=== PATIENT | female | born 1955 | race African-American/Black ===

== ENCOUNTER 2017-02-18 08:21 | Emergency (ER) | payer MEDICARE, MEDICAID ==
[~2017-02-18] VITALS: Ht 175.3 cm; Wt 102.0 kg
[~2017-02-18 08:21] MED LIST: ALBU18HF2 IH; ASPI-1159 PO; FLOV44 INH; INSU100I3 SQ; LOSA25TA3 PO; SYN150 PO
[2017-02-18 09:01] LABS: BASOPHILS % 1.1 % (0.0-2.0); EOSINOPHILS % 1.9 % (0.0-5.0); HEMATOCRIT. 45.5 % (36.0-48.0); HEMOGLOBIN. 15.8 g/dL (12.0-16.0); LYMPHOCYTES % 33.2 % (20.0-50.0); MEAN CORPUSCULAR HEMOGLOBIN 26.1 pg (28.0-32.0); MONOCYTES % 5.9 % (2.0-8.0); NEUTROPHILS % 57.9 % (40.0-76.0); PLATELET 231 x1000/uL (130-400); RED BLOOD CELL COUNT 6.07 mill/uL (4.2-5.4); RED CELL DISTRIBUTION WIDTH 19.4 % (11.6-14.6)
[2017-02-18 09:05] LABS: CLARITY URINE CLOUDY (CLEAR); COLOR URINE YELLOW (YELLOW); GLUCOSE URINE NEGATIVE (NEGATIVE); KETONES URINE NEGATIVE (NEGATIVE); LEUKOCYTE ESTERASE URINE 2+ (NEGATIVE); NITRITE URINE POSITIVE (NEGATIVE); OCCULT BLOOD URINE 1+ (NEGATIVE); PROTEIN URINE 2+ (NEGATIVE); SPECIFIC GRAVITY URINE 1.011 (1.005-1.030)
[2017-02-18 09:16] LABS: CARBON DIOXIDE 29 mEq/L (21-32); CHLORIDE 106 mEq/L (98-107)
[2017-02-18 09:45] VITALS: BP 153/73
== END 2017-02-18 09:52 | disposition home or self-care (01) ==
LOC: ER 08:32
DX: N39.0 Urinary tract infection, site not specified (principal); E11.65 Type 2 diabetes mellitus with hyperglycemia; J44.9 Chronic obstructive pulmonary disease, unspecified; I10 Essential (primary) hypertension; Z79.82 Long term (current) use of aspirin; Z79.4 Long term (current) use of insulin; Z88.5 Allergy status to narcotic agent; Z88.8 Allergy status to other drugs, medicaments and biological substances; Z88.6 Allergy status to analgesic agent
CPT/HCPCS: 36415; 80053; 81001; 83690; 85025; 99284

== ENCOUNTER 2017-04-20 15:19 | Emergency (ER) | payer MEDICARE, MEDICAID ==
[~2017-04-20] VITALS: Ht 175.3 cm; Wt 107.0 kg
[2017-04-20 17:38] VITALS: BP 164/88
== END 2017-04-20 18:42 | disposition home or self-care (01) ==
LOC: ER 15:47
DX: R07.89 Other chest pain (principal); J44.9 Chronic obstructive pulmonary disease, unspecified; E11.9 Type 2 diabetes mellitus without complications; I10 Essential (primary) hypertension; E03.9 Hypothyroidism, unspecified; M32.9 Systemic lupus erythematosus, unspecified; Z79.4 Long term (current) use of insulin; Z88.5 Allergy status to narcotic agent; Z88.6 Allergy status to analgesic agent; Z90.710 Acquired absence of both cervix and uterus; Z79.82 Long term (current) use of aspirin; Z91.048 Other nonmedicinal substance allergy status
CPT/HCPCS: 36415; 84484; 93005; 99285

== ENCOUNTER 2017-07-26 16:27 | Emergency (ER) | payer MEDICARE, MEDICAID ==
[~2017-07-26] VITALS: Ht 175.3 cm; Wt 107.0 kg
[2017-07-26 19:52] LABS: BASOPHILS % 0.7 % (0.0-2.0); EOSINOPHILS % 2.4 % (0.0-5.0); HEMATOCRIT. 48.3 % (36.0-48.0); HEMOGLOBIN. 15.7 g/dL (12.0-16.0); LYMPHOCYTES % 29.1 % (20.0-50.0); MEAN CORPUSCULAR HEMOGLOBIN 26.3 pg (28.0-32.0); MEAN PLATELET VOLUME 10.2 fl (7.4-10.4); MONOCYTES % 6.1 % (2.0-8.0); NEUTROPHILS % 61.7 % (40.0-76.0); PLATELET 247 x1000/uL (130-400); RED BLOOD CELL COUNT 5.97 mill/uL (4.2-5.4); RED CELL DISTRIBUTION WIDTH 16.3 % (11.6-14.6)
[2017-07-26 19:55] VITALS: BP 182/92
[2017-07-26 19:56] LABS: PARTIAL THROMBOPLASTIN TIME 26.9 sec (23.4-31.0); PROTHROMBIN TIME 10.2 sec (9.4-11.6)
[2017-07-26 20:06] LABS: CARBON DIOXIDE 28 mEq/L (21-32); CHLORIDE 101 mEq/L (98-107); TROPONIN I < 0.02 ng/mL (0.00-0.04)
[2017-07-26 20:25] LABS: CLARITY URINE CLEAR (CLEAR); COLOR URINE YELLOW (YELLOW); KETONES URINE NEGATIVE (NEGATIVE); LEUKOCYTE ESTERASE URINE NEGATIVE (NEGATIVE); NITRITE URINE NEGATIVE (NEGATIVE); OCCULT BLOOD URINE NEGATIVE (NEGATIVE); PH URINE 5.5 (4.5-8.0); PROTEIN URINE NEGATIVE (NEGATIVE); UROBILINOGEN URINE 0.2 E.U./dL (0.2-1.0)
== END 2017-07-26 22:39 | disposition home or self-care (01) ==
LOC: ER 16:46
DX: J20.9 Acute bronchitis, unspecified (principal); I10 Essential (primary) hypertension; E11.9 Type 2 diabetes mellitus without complications; M32.9 Systemic lupus erythematosus, unspecified; E89.0 Postprocedural hypothyroidism; Z88.5 Allergy status to narcotic agent; Z88.8 Allergy status to other drugs, medicaments and biological substances; Z88.6 Allergy status to analgesic agent; Z91.041 Radiographic dye allergy status; Z90.710 Acquired absence of both cervix and uterus; Z90.49 Acquired absence of other specified parts of digestive tract
CPT/HCPCS: 36415; 71010; 80053; 81001; 83605; 83880; 84484; 85025; 85610; 85730; 87040; 87804; 93005; 99285

== ENCOUNTER 2017-10-15 15:17 | Emergency (ER) | payer MEDICARE, MEDICAID ==
[~2017-10-15] VITALS: Ht 175.3 cm; Wt 107.0 kg
[2017-10-15 16:31] LABS: BASOPHILS % 0.7 % (0.0-2.0); EOSINOPHILS % 1.8 % (0.0-5.0); HEMATOCRIT. 52.2 % (36.0-48.0); HEMOGLOBIN. 17.4 g/dL (12.0-16.0); LYMPHOCYTES % 27.1 % (20.0-50.0); MEAN CORPUSCULAR HEMOGLOBIN 27.1 pg (28.0-32.0); MEAN CORPUSCULAR VOLUME 81.2 fL (81.0-99.0); MONOCYTES % 3.9 % (2.0-8.0); NEUTROPHILS % 66.5 % (40.0-76.0); PLATELET 253 x1000/uL (130-400); RED BLOOD CELL COUNT 6.43 mill/uL (4.2-5.4); RED CELL DISTRIBUTION WIDTH 16.3 % (11.6-14.6)
[2017-10-15 16:34] LABS: PROTHROMBIN TIME 10.7 sec (9.4-11.6)
[2017-10-15 16:38] LABS: CHLORIDE 100 mEq/L (98-107)
[2017-10-15] MEDS ORDERED: BENZONATATE 200MG CAPSULE PO ONE (20:15)
[2017-10-15] MEDS ORDERED: PREDNISONE 20MG TABLET PO ONE (20:15)
[2017-10-15 20:33] VITALS: BP 155/72
== END 2017-10-15 20:35 | disposition home or self-care (01) ==
LOC: ER 15:58
DX: J18.9 Pneumonia, unspecified organism (principal); J44.0 Chronic obstructive pulmonary disease with (acute) lower respiratory infection; I10 Essential (primary) hypertension; R79.1 Abnormal coagulation profile; E11.9 Type 2 diabetes mellitus without complications; Z79.4 Long term (current) use of insulin; Z79.82 Long term (current) use of aspirin; Z88.5 Allergy status to narcotic agent; Z88.8 Allergy status to other drugs, medicaments and biological substances
CPT/HCPCS: 36415; 71045; 80053; 84484; 85025; 85610; 87804; 93005; 99285; J7512

== ENCOUNTER 2017-11-12 09:40 | Inpatient (IN) | payer MEDICARE, MEDICAID ==
[~2017-11-12] VITALS: Ht 175.3 cm; Wt 106.1 kg
[~2017-11-12 09:40] MED LIST changes: -ALBU18HF2 IH; +BENA40TA3 PO; -FLOV44 INH; +INSU100I22 SQ; -INSU100I3 SQ; +INSU100I7 SQ; -LOSA25TA3 PO
[2017-11-12 10:34] LABS: EOSINOPHILS % 5.2 % (0.0-5.0); HEMATOCRIT. 46.1 % (36.0-48.0); HEMOGLOBIN. 15.5 g/dL (12.0-16.0); LYMPHOCYTES % 36.6 % (20.0-50.0); MEAN CORPUSCULAR HEMOGLOBIN 27.3 pg (28.0-32.0); MEAN CORPUSCULAR VOLUME 81.3 fL (81.0-99.0); MEAN PLATELET VOLUME 9.9 fl (7.4-10.4); MONOCYTES % 4.5 % (2.0-8.0); NEUTROPHILS % 52.7 % (40.0-76.0); PLATELET 241 x1000/uL (130-400); RED BLOOD CELL COUNT 5.67 mill/uL (4.2-5.4); RED CELL DISTRIBUTION WIDTH 15.9 % (11.6-14.6)
[2017-11-12 10:40] LABS: CHLORIDE 102 mEq/L (98-107)
[2017-11-12 10:41] LABS: PARTIAL THROMBOPLASTIN TIME 27.8 sec (23.4-31.0); PROTHROMBIN TIME 10.1 sec (9.4-11.6)
[2017-11-12] MEDS ORDERED: METHYLPREDNISOLONE SOD SUCC 125 MG/2 ML VIAL IV STA (11:00)
[2017-11-12] MEDS ORDERED: ALBUTEROL (0.083%) 2.5MG/3ML NEB HHN STA (11:00)
[2017-11-12] MEDS ORDERED: MAGNESIUM 2 G PREMIX 50 ML IV STA (11:00)
[2017-11-12] MEDS ORDERED: IPRATROPIUM BROMIDE (0.02%) 0.5MG/2.5ML NEB HHN STA (11:00)
[2017-11-12 11:25] LABS: CLARITY URINE CLEAR (CLEAR); COLOR URINE YELLOW (YELLOW); KETONES URINE NEGATIVE (NEGATIVE); LEUKOCYTE ESTERASE URINE 2+ (NEGATIVE); NITRITE URINE NEGATIVE (NEGATIVE); OCCULT BLOOD URINE NEGATIVE (NEGATIVE); PROTEIN URINE NEGATIVE (NEGATIVE); SPECIFIC GRAVITY URINE 1.019 (1.005-1.030); UROBILINOGEN URINE 0.2 E.U./dL (0.2-1.0)
[2017-11-12] MEDS ORDERED: CLONIDINE 0.1MG TABLET PO PRN (11:30)
[2017-11-12] MEDS ORDERED: ONDANSETRON HCL 4MG/2ML VIAL IV PRN (11:30)
[2017-11-12] MEDS ORDERED: DOCUSATE SODIUM 100MG CAPSULE PO PRN (11:30)
[2017-11-12] MEDS ORDERED: ACETAMINOPHEN 325MG TABLET PO PRN (11:30)
[2017-11-12] MEDS ORDERED: LEVOFLOXACIN 500MG PREMIX 100 ML IV ONE (12:15)
[2017-11-12] MEDS ORDERED: LIDOCAINE HCL/PF 1% 2ML VIAL ONE (12:45)
[2017-11-12 12:50] LABS: BG BASE EXCESS -1.4 mmol/L (-2.0-2.0); BG CARBOXYHEMOGLOBIN 0.7 % (0.5-1.5); BG DEOXYHEMOGLOBIN 4.1 % (0.0-5.0); BG METHEMOGLOBIN 0.2 % (0.0-1.5); BG OXYGEN SATURATION 95.9 % (92.0-98.5); BG PCO2 38.1 mmHg (35.0-45.0); BG PH 7.399 (7.350-7.450); BG PO2 81.5 mmHg (75.0-100.0); BG SAMPLE SITE RIGHT RADIAL; BG TOTAL HEMOGLOBIN 14.9 g/dL (12.0-18.0); BG VENT MODE ROOM AIR
[2017-11-12 14:42] VITALS: BP 122/71
[2017-11-12 16:00] VITALS: BP 122/71
[2017-11-12] MEDS ORDERED: METHYLPREDNISOLONE SOD SUCC 40 MG/ML VIAL IV SCH (16:00)
[2017-11-12] MEDS: ENOXAPARIN 30MG/0.3ML SYR SUBCUT SCH (16:05)
[2017-11-12] MEDS ORDERED: IPRATROPIUM/ALBUTEROL 0.5-3(2.5)MG/3ML NEB INH SCH (16:30)
[2017-11-12] MEDS: BENAZEPRIL 20MG TABLET PO SCH (17:00)
[2017-11-12] MEDS ORDERED: CEFTRIAXONE 1 G PREMIX 50 ML IV SCH (18:00)
[2017-11-12] MEDS ORDERED: DEXTROSE 50% WATER 50ML SYRINGE IV PRN (18:45)
[2017-11-12] MEDS: BLOOD SUGAR DIAGNOSTIC STRIP TEST SCH ×2 (18:47→21:00)
[2017-11-12] MEDS: INSULIN LISPRO 100 UNITS/ML SUBCUT SCH ×2 (18:55→23:31)
[2017-11-12] MEDS ORDERED: GUAIFENESIN/CODEINE 200-20MG/10ML UDC PO PRN (19:45)
[2017-11-12] MEDS ORDERED: BENZONATATE 100MG CAPSULE PO PRN (19:45)
[2017-11-12] MEDS ORDERED: GUAIFENESIN/CODEINE 100-10MG/5ML UDC PO PRN (19:51)
[2017-11-12 20:00] VITALS: BP 145/70
[2017-11-12] MEDS: IPRATROPIUM/ALBUTEROL 0.5-3(2.5)MG/3ML NEB INH SCH (22:04)
[2017-11-12] MEDS: INSULIN NPH (HUMULIN-N) 100 UNITS/ML 3ML VIAL SUBCUT SCH (23:31)
[2017-11-13] VITALS: BP 156/84
[2017-11-13 04:00] VITALS: BP 124/65
[2017-11-13] MEDS: BLOOD SUGAR DIAGNOSTIC STRIP TEST SCH ×5 (04:33→20:00)
[2017-11-13] MEDS: INSULIN LISPRO 100 UNITS/ML SUBCUT SCH ×3 (04:36→12:00)
[2017-11-13] MEDS: FLUTICASONE/VILANTEROL 200-25 BLST.W.DEV ORI SCH (05:39)
[2017-11-13] MEDS: ENOXAPARIN 30MG/0.3ML SYR SUBCUT SCH ×2 (06:00→18:00)
[2017-11-13] MEDS: LEVOTHYROXINE SODIUM 150MCG TABLET PO SCH (06:32)
[2017-11-13 07:38] LABS: BASOPHILS % 0.2 % (0.0-2.0); HEMATOCRIT. 42.8 % (36.0-48.0); HEMOGLOBIN. 13.9 g/dL (12.0-16.0); LYMPHOCYTES % 11.3 % (20.0-50.0); MEAN CORPUSCULAR HEMOGLOBIN 26.5 pg (28.0-32.0); MEAN CORPUSCULAR VOLUME 81.6 fL (81.0-99.0); MEAN PLATELET VOLUME 10.5 fl (7.4-10.4); MONOCYTES % 2.5 % (2.0-8.0); PLATELET 266 x1000/uL (130-400); RED BLOOD CELL COUNT 5.24 mill/uL (4.2-5.4); RED CELL DISTRIBUTION WIDTH 15.9 % (11.6-14.6)
[2017-11-13 08:00] VITALS: BP 144/76
[2017-11-13 08:20] LABS: CHLORIDE 101 mEq/L (98-107)
[2017-11-13] MEDS: BENAZEPRIL 20MG TABLET PO SCH ×2 (08:23→17:00)
[2017-11-13] MEDS: INSULIN NPH (HUMULIN-N) 100 UNITS/ML 3ML VIAL SUBCUT SCH ×2 (08:29→21:44)
[2017-11-13 08:30] LABS: CREATINE KINASE MB FRACTION 0.8 ng/mL (0.5-3.6); LDL CHOLESTEROL 189 mg/dL (5-100)
[2017-11-13 08:31] LABS: CREATINE KINASE 56 IU/L (26-192)
[2017-11-13 08:32] LABS: HDL CHOLESTEROL 67 mg/dL (40-59)
[2017-11-13] MEDS ORDERED: AMLO2.5T45 PO (08:36)
[2017-11-13] MEDS ORDERED: GLIP10TA10 PO (08:36)
[2017-11-13] MEDS: IPRATROPIUM/ALBUTEROL 0.5-3(2.5)MG/3ML NEB INH SCH ×4 (09:45→20:12)
[2017-11-13 12:00] VITALS: BP 153/70
[2017-11-13] MEDS ORDERED: INSULIN REGULAR (HUMULIN R) UD 100 UNITS/ML SYR SUBCUT NR ×2 (14:15→20:00)
[2017-11-13 16:00] VITALS: BP 139/63
[2017-11-13] MEDS ORDERED: GUAIFENESIN/DM 600MG/30MG ER TAB 12HR PO PRN (16:30)
[2017-11-13] MEDS ORDERED: NON FORMULARY PATIENT HOME MED EA XX SCH (19:00)
[2017-11-13] MEDS: BENZONATATE 100MG CAPSULE PO SCH (19:04)
[2017-11-13] MEDS ORDERED: GUAIFENESIN/CODEINE 100-10MG/5ML UDC PO PRN (19:51)
[2017-11-13 20:00] VITALS: BP 129/75
[2017-11-13 20:51] LABS: CLARITY URINE CLEAR (CLEAR); COLOR URINE YELLOW (YELLOW); KETONES URINE NEGATIVE (NEGATIVE); LEUKOCYTE ESTERASE URINE TRACE (NEGATIVE); NITRITE URINE NEGATIVE (NEGATIVE); OCCULT BLOOD URINE NEGATIVE (NEGATIVE); PH URINE 5.5 (4.5-8.0); PROTEIN URINE NEGATIVE (NEGATIVE); SPECIFIC GRAVITY URINE 1.025 (1.005-1.030); UROBILINOGEN URINE 0.2 E.U./dL (0.2-1.0)
[2017-11-13] MEDS: CEFTRIAXONE 1 G PREMIX 50 ML IV SCH (21:16)
[2017-11-13] MEDS: INSULIN REGULAR HUMAN (HIGH DOSE) 100 UNITS/ML 3ML VIAL SUBCUT SCH (21:40)
[2017-11-14] VITALS: BP 136/63
[2017-11-14] MEDS: BLOOD SUGAR DIAGNOSTIC STRIP TEST SCH ×6 (00:18→23:42)
[2017-11-14] MEDS: BENZONATATE 100MG CAPSULE PO SCH ×2 (00:57→09:58)
[2017-11-14] MEDS: INSULIN REGULAR HUMAN (HIGH DOSE) 100 UNITS/ML 3ML VIAL SUBCUT SCH ×6 (01:00→20:00)
[2017-11-14 04:00] VITALS: BP 148/69
[2017-11-14] MEDS: ENOXAPARIN 30MG/0.3ML SYR SUBCUT SCH ×2 (06:00→18:00)
[2017-11-14] MEDS: LEVOTHYROXINE SODIUM 150MCG TABLET PO SCH (06:46)
[2017-11-14 07:21] LABS: T4 FREE 1.08 ng/dL (0.76-1.46)
[2017-11-14 08:00] VITALS: BP 142/76
[2017-11-14] MEDS: INSULIN NPH (HUMULIN-N) 100 UNITS/ML 3ML VIAL SUBCUT SCH ×2 (08:53→20:46)
[2017-11-14] MEDS: AMLODIPINE 10MG TABLET PO SCH (08:53)
[2017-11-14] MEDS: FLUTICASONE/VILANTEROL 200-25 BLST.W.DEV ORI SCH (08:55)
[2017-11-14] MEDS: IPRATROPIUM/ALBUTEROL 0.5-3(2.5)MG/3ML NEB INH SCH ×4 (09:00→19:54)
[2017-11-14] MEDS ORDERED: GLIPIZIDE 10MG TABLET PO SCH (09:00)
[2017-11-14 11:53] VITALS: BP 135/80
[2017-11-14] MEDS ORDERED: GUAIFENESIN/CODEINE 100-10MG/5ML UDC PO PRN (14:00)
[2017-11-14 15:43] VITALS: BP 128/71
[2017-11-14] MEDS: GLIMEPIRIDE 2MG TABLET PO SCH (18:35)
[2017-11-14 20:00] VITALS: BP 133/73
[2017-11-14] MEDS: CEFTRIAXONE 1 G PREMIX 50 ML IV SCH (20:46)
[2017-11-14] MEDS ORDERED: INSULIN NPH (HUMULIN-N) 100 UNITS/ML 3ML VIAL SUBCUT SCH (22:15)
[2017-11-14] MEDS: INSULIN REGULAR (HUMULIN R) 300UNITS/3ML SUBCUT SCH (23:47)
[2017-11-15] VITALS: BP 164/83
[2017-11-15] MEDS: IPRATROPIUM/ALBUTEROL 0.5-3(2.5)MG/3ML NEB INH SCH (00:05)
[2017-11-15 04:00] VITALS: BP 135/87
[2017-11-15] MEDS: ENOXAPARIN 30MG/0.3ML SYR SUBCUT SCH ×2 (06:00→17:12)
[2017-11-15] MEDS: BLOOD SUGAR DIAGNOSTIC STRIP TEST SCH ×4 (06:01→23:53)
[2017-11-15] MEDS: LEVOTHYROXINE SODIUM 150MCG TABLET PO SCH (06:37)
[2017-11-15] MEDS: INSULIN REGULAR (HUMULIN R) 300UNITS/3ML SUBCUT SCH ×4 (06:41→23:53)
[2017-11-15 07:12] LABS: BASOPHILS % 0.7 % (0.0-2.0); EOSINOPHILS % 2.6 % (0.0-5.0); HEMATOCRIT. 42.9 % (36.0-48.0); HEMOGLOBIN. 14.5 g/dL (12.0-16.0); LYMPHOCYTES % 44.1 % (20.0-50.0); MEAN CORPUSCULAR HEMOGLOBIN 27.4 pg (28.0-32.0); MEAN CORPUSCULAR VOLUME 81.2 fL (81.0-99.0); MEAN PLATELET VOLUME 9.5 fl (7.4-10.4); MONOCYTES % 5.7 % (2.0-8.0); NEUTROPHILS % 46.9 % (40.0-76.0); PLATELET 254 x1000/uL (130-400); RED BLOOD CELL COUNT 5.28 mill/uL (4.2-5.4); RED CELL DISTRIBUTION WIDTH 16.1 % (11.6-14.6)
[2017-11-15 07:25] LABS: CHLORIDE 106 mEq/L (98-107)
[2017-11-15] MEDS: GLIMEPIRIDE 2MG TABLET PO SCH ×2 (07:46→17:07)
[2017-11-15 08:00] VITALS: BP 146/85
[2017-11-15] MEDS: INSULIN NPH (HUMULIN-N) 100 UNITS/ML 3ML VIAL SUBCUT SCH ×2 (08:37→20:33)
[2017-11-15] MEDS: AMLODIPINE 10MG TABLET PO SCH (08:43)
[2017-11-15] MEDS: FLUTICASONE/VILANTEROL 200-25 BLST.W.DEV ORI SCH (08:44)
[2017-11-15 12:00] VITALS: BP 153/76
[2017-11-15] MEDS ORDERED: ALBUTEROL (0.083%) 2.5MG/3ML NEB HHN PRN (15:30)
[2017-11-15] MEDS ORDERED: FLUCONAZOLE 150MG TABLET PO NR (15:30)
[2017-11-15] MEDS: LOSARTAN POTASSIUM 25 MG TABLET PO SCH (15:51)
[2017-11-15 16:00] VITALS: BP 147/82
[2017-11-15] MEDS ORDERED: MONTELUKAST SODIUM 10MG TABLET PO SCH (17:00)
[2017-11-15] MEDS: UMECLIDINIUM BROMIDE 1 INH BLST.W.DEV IH SCH (17:07)
[2017-11-15] MEDS: CEFTRIAXONE 1 G PREMIX 50 ML IV SCH (19:20)
[2017-11-15 20:00] VITALS: BP 142/79
[2017-11-16 00:14] VITALS: BP 135/65
[2017-11-16 04:00] VITALS: BP 151/78
[2017-11-16] MEDS: BLOOD SUGAR DIAGNOSTIC STRIP TEST SCH (05:25)
[2017-11-16] MEDS: INSULIN REGULAR (HUMULIN R) 300UNITS/3ML SUBCUT SCH (05:28)
[2017-11-16] MEDS: ENOXAPARIN 30MG/0.3ML SYR SUBCUT SCH (05:35)
[2017-11-16] MEDS: LEVOTHYROXINE SODIUM 150MCG TABLET PO SCH (06:41)
[2017-11-16 08:00] VITALS: BP 127/67
[2017-11-16] MEDS: INSULIN NPH (HUMULIN-N) 100 UNITS/ML 3ML VIAL SUBCUT SCH (08:15)
[2017-11-16] MEDS: GLIMEPIRIDE 2MG TABLET PO SCH (08:49)
[2017-11-16] MEDS: AMLODIPINE 10MG TABLET PO SCH (08:50)
[2017-11-16] MEDS: LOSARTAN POTASSIUM 25 MG TABLET PO SCH (08:50)
[2017-11-16] MEDS: UMECLIDINIUM BROMIDE 1 INH BLST.W.DEV IH SCH (08:51)
[2017-11-16] MEDS: FLUTICASONE/VILANTEROL 200-25 BLST.W.DEV ORI SCH (08:55)
[2017-11-16 10:11] VITALS: BP 127/67
== END 2017-11-16 10:40 | disposition home or self-care (01) | DRG 190 ==
LOC: ER 10:03 → 6EST 11:21 → ENRESERV 12:40
PROVIDERS: ADMIT Internal Medicine Nephrology; ATTEND Internal Medicine Nephrology
DX: J44.1 Chronic obstructive pulmonary disease with (acute) exacerbation (principal); J18.0 Bronchopneumonia, unspecified organism; E46 Unspecified protein-calorie malnutrition; I11.9 Hypertensive heart disease without heart failure; E66.01 Morbid (severe) obesity due to excess calories; E11.65 Type 2 diabetes mellitus with hyperglycemia; J45.901 Unspecified asthma with (acute) exacerbation; N39.0 Urinary tract infection, site not specified; T38.0X5A Adverse effect of glucocorticoids and synthetic analogues, initial encounter; E89.0 Postprocedural hypothyroidism; E78.00 Pure hypercholesterolemia, unspecified; I25.10 Atherosclerotic heart disease of native coronary artery without angina pectoris; E78.5 Hyperlipidemia, unspecified; Z79.4 Long term (current) use of insulin; Z79.899 Other long term (current) drug therapy; Z80.0 Family history of malignant neoplasm of digestive organs; Z83.3 Family history of diabetes mellitus; Z90.710 Acquired absence of both cervix and uterus; Z92.3 Personal history of irradiation; Z91.19 Patient's noncompliance with other medical treatment and regimen; Z88.9 Allergy status to unspecified drugs, medicaments and biological substances; Z85.850 Personal history of malignant neoplasm of thyroid; Z82.5 Family history of asthma and other chronic lower respiratory diseases; Z88.6 Allergy status to analgesic agent; Z90.49 Acquired absence of other specified parts of digestive tract; Y92.89 Other specified places as the place of occurrence of the external cause; J40 Bronchitis, not specified as acute or chronic
CPT/HCPCS: 36415; 36600; 71045; 71250; 78582; 80048; 80053; 80061; 81003; 82375; 82550; 82553; 82805; 82962; 83605; 83690; 83735; 83880; 84439; 84443; 84484; 85025; 85379; 85610; 85730; 87040; 87070; 87086; 87804; 93005; 94640; 96365; 96375; 97161; 99291; A9558; J0696; J1650; J1815; J2920; J2930; J3475; J3490; J7040; J7611; J7620